=== PATIENT | male | born 1995 | race Caucasian/White ===

== ENCOUNTER 2021-04-07 17:18 | Emergency (ER) | payer BC, SELFPAY ==
[2021-04-07 17:26] VITALS: BP 150/90; PULSE 77; RESP 18; TEMP 37.1; O2SAT 99
--- NOTE | 2021-04-07 17:49 | ED.MALEGU ---
HPI - Male Genitourinary General Chief complaint: Urogenital-Male Stated complaint: stds Source: patient Mode of arrival: ambulatory Limitations: no limitations History of Present Illness HPI Narrative: Patient is a 25-year-old male who presents requesting STD prophylaxis. Reports having unprotected sex last night. Denies penile discharge at this time. Denies dysuria. Patient is very anxious requesting treatment. Discussed with patient STD testing patient agrees to, however, is requesting prophylactic treatment. Denies significant medical history, denies all other complaints at this time. MD Complaint: possible STD exposure Related Data Allergies Allergy/AdvReac Type Severity Reaction Status Date / Time No Known Allergies Allergy Verified 04/07/21 17:41 Review of Systems Review of Systems: CONSTITUTIONAL: Denies fever, chills, or sweats. EYES: Denies visual changes, redness, or discharge. ENT: Denies rhinorrhea, congestion, sore throat, or otalgia. CARDIOVASCULAR: Denies chest pain, palpitations, or edema. RESPIRATORY: Denies cough or dyspnea. GASTROINTESTINAL: Denies abdominal pain, nausea, vomiting, or diarrhea. GENITOURINARY: Reports exposure to STD SKIN: Denies rash or itching. MUSCULOSKELETAL: Denies back pain, joint pain, or myalgia. NEUROLOGIC: Denies headache, numbness, dizziness, or weakness. PSYCHIATRIC: Denies anxiety or depression. PMFSH Past Medical History Medical History Asthma Surgical History Surgical History No significant past surgical history Social History Social History (Updated 04/07/21 @ 18:04 by MARGOT Lunsford) Smoking status: Never smoker Alcohol intake: current Alcohol use details: Occasional Substance use: never Occupation/Education: occupation Comments At the time of signature, I have reviewed and agree with nursing past medical, surgical, social, and family history unless otherwise noted. Please see nursing chart for further information. There is no relevant family history pertinent to the presenting complaint. Exam Narrative: GENERAL: Well-appearing, well-nourished, and in no acute distress. HEAD: Normocephalic, atraumatic. EYES: EOMI. No redness or drainage. Conjunctiva are normal. ENT: Mucous membranes pink and moist. NECK: AROM. Supple. No lymphadenopathy. CHEST: No respiratory distress. HEART: Regular rate and rhythm. EXTREMITIES: Normal range of motion. SKIN: Warm, dry, no rash. NEURO: No focal deficits. Alert and oriented x3. Gait steady. PSYCH: Normal affect. No signs of depression or anxiety. Course Vital Signs Vital signs: Vital Signs Temperature 37.1 C 04/07/21 17:26 Pulse Rate 77 04/07/21 17:26 Respiratory Rate 18 04/07/21 17:26 Blood Pressure 150/90 H 04/07/21 17:26 Pulse Oximetry 99 04/07/21 17:26 Temperature 37.1 C 04/07/21 17:26 Pulse Rate 77 04/07/21 17:26 Respiratory Rate 18 04/07/21 17:26 Blood Pressure 150/90 H 04/07/21 17:26 Pulse Oximetry 99 04/07/21 17:26 Reviewed MDM - Male Genitourinary MDM Narrative Medical decision making narrative: Patient to be treated for STD exposure. Discussed with patient the need for safe sexual practices. Patient is stable for discharge to home with outpatient follow-up as needed. Differential Diagnosis Differential diagnosis: Likely urinary tract infection, urethritis, epididymitis, genital herpes simplex and other (Gonorrhea, chlamydia, trichomonas) Lab Data Labs: Urine Glucose Negative Reference Range: Negative Urine Bilirubin Negative Reference Range: Negative Urine Ketone Negative Reference Range: Negative Urine Specific [place] 1.0
[2021-04-07] MEDS: LIDOCAINE HCL 1% LOCAL INJ 20 ML VIAL IM (18:03)
[2021-04-07] MEDS: cefTRIAXone 500 MG VIAL IM (18:04)
== END 2021-04-07 18:20 | disposition home or self-care (01) ==
PROVIDERS: Emergency Provider Nurse Practitioner
DX: Z72.51 High risk heterosexual behavior (principal); J45.909 Unspecified asthma, uncomplicated
CPT/HCPCS: 81003; 87491; 87591; 87661; 96372; 99213; G0463; J0696